=== PATIENT | female | born 1995 | race Caucasian/White ===

== ENCOUNTER 2021-08-28 11:12 | Emergency (ER) | payer OTHER, SELFPAY ==
[2021-08-28 12:25] VITALS: BP 149/83; PULSE 93; RESP 20; TEMP 37.1; O2SAT 99
--- NOTE | 2021-08-28 13:10 | ED.URI ---
HPI - URI/Sore Throat General Chief Complaint: Upper Respiratory Infection Stated Complaint: Sore Throat/Cough/Congestion Source: patient and RN notes reviewed Mode of arrival: ambulatory History of Present Illness HPI Narrative: 25-year-old female presented for complaint of sore throat, head congestion, sneezing, cough with white sputum, and pleuritic chest pain for 6 days. She also endorses occasional headache and low-grade fever today. She denies shortness of breath, nausea, vomiting, diarrhea. She has been taking DayQuil, throat spray, and [place] for symptoms. She has been vaccinated for Covid and had a PCR test 2 days ago pending results. Related Data Home Medications Medication Instructions Recorded Confirmed norgestimate-ethinyl estradiol 1 tablet PO DAILY 08/28/21 08/28/21 [[id number]] topiramate 25 mg PO BID PRN 08/28/21 08/28/21 Allergies Allergy/AdvReac Type Severity Reaction Status Date / Time No Known Allergies Allergy Unverified 08/28/21 13:14 Review of Systems Review of Systems: All systems reviewed & are unremarkable except as noted in HPI and below [facility] Family History Family History (Updated 08/28/21 @ 13:15 by Yee Chopra, [employer]) Other Family history non-contributory Exam Narrative: GENERAL: Ill-appearing, and in no acute distress. HEAD: Normocephalic, atraumatic. EYES: EOMI. No redness or drainage. Conjunctivae normal. ENT: Mucous membranes pink and moist. Nares clear. No rhinorrhea. NECK: Normal AROM. Supple. No lymphadenopathy. CHEST: No respiratory distress. Clear to auscultation. HEART: Regular rate and rhythm. No murmur appreciated. Normal peripheral pulses. ABDOMEN: Soft, nontender, nondistended, MUSCULOSKELETAL: No bony tenderness. EXTREMITIES: Normal range of motion. No edema. SKIN: Warm, dry, no rash. Capillary refill normal. Normal skin turgor. NEURO: No focal deficits. Alert and oriented x3. Gait steady. PSYCH: Normal affect. No signs of depression or anxiety. Course Course Level of Care: Express Care Visit Vital Signs Vital signs: Vital Signs Temperature 98.8 F 08/28/21 12:25 Pulse Rate 93 08/28/21 12:25 Respiratory Rate 20 08/28/21 12:25 Blood Pressure 149/83 H 08/28/21 12:25 Pulse Oximetry 99 08/28/21 12:25 Temperature 98.8 F 08/28/21 12:25 Pulse Rate 93 08/28/21 12:25 Respiratory Rate 20 08/28/21 12:25 Blood Pressure 149/83 H 08/28/21 12:25 Pulse Oximetry 99 08/28/21 12:25 MDM - URI/Sore Throat MDM Narrative Medical decision making narrative: Pt has covid test pending from [facility] Strep positive flu swab neg DC home with abx and instruction on supportive care and otc medications. Differential Diagnosis Differential diagnosis: Likely upper respiratory infection, sinusitis and viral infection Lab Data Attestation: I reviewed the patient's lab results. Discharge Plan Discharge Clinical Impression: Strep pharyngitis Patient Disposition: Home, Self-Care Condition: Stable Instructions: Antibiotic Form, Strep Throat (ED), Viral Syndrome (ED), COVID-19 (Coronavirus Disease 2019) (ED) Additional Instructions: Strep swab positive today take antibiotic as directed Rest. Stay hydrated. Gargle with warm salt water 2 times a day. Tylenol 1000mg every 8 hours and [id number] medications as you have been. Follow-up with your primary care provider in 1 to 2 weeks as needed. You are waiting for the covid results The following recommendations have been made by the CDC and local Health Departments, regarding COVID-19: Those individuals with mild cases of COVID-19 can generally be discontinued from isolation, 5 days AFTER the onset of symptoms AND the resolution of fever for 24hrs (without the use of fever-reducing medications) Those individuals who were asymptomatic, and tested positive, are discontinued from isolation 5 days AFTER their first positive COVID-19 test Prescriptions:
== END 2021-08-28 13:50 | disposition home or self-care (01) ==
PROVIDERS: Emergency Provider Nurse Practitioner Family; PCP Nurse Practitioner Family
DX: J02.0 Streptococcal pharyngitis (principal)
CPT/HCPCS: 87804; 87880; 99213; G0463

== ENCOUNTER 2021-09-06 08:06 | Emergency (ER) | payer OTHER, SELFPAY ==
[2021-09-06 08:18] VITALS: BP 145/92; PULSE 83; RESP 18; TEMP 36.8; O2SAT 98
--- NOTE | 2021-09-06 08:25 | ED.GENADULT ---
HPI - General Adult General Chief complaint: Ear Stated complaint: meds did not work/sore throat Time Seen by Provider: 09/06/21 08:25 Source: patient Mode of arrival: ambulatory Limitations: no limitations History of Present Illness HPI narrative: 25-year-old female patient presents to the [facility] with complaints of right ear pain. Patient was diagnosed with strep throat and COVID-19 on August 29. Patient states that she was given amoxicillin for her strep infection which she did complete but continues to have a sore throat and now having right ear pain. Denies any fevers, body aches or chills. Related Data Home Medications Medication Instructions Recorded Confirmed norgestimate-ethinyl estradiol 1 tablet PO DAILY 08/28/21 09/06/21 [[id number]] topiramate 25 mg PO BID PRN 08/28/21 09/06/21 Allergies Allergy/AdvReac Type Severity Reaction Status Date / Time No Known Allergies Allergy Verified 09/06/21 08:21 Review of Systems Review of Systems: CONSTITUTIONAL: Denies fever, chills, or sweats. EYES: Denies visual changes, redness, or discharge. ENT: Denies rhinorrhea, congestion, positive sore throat, positive right otalgia. CARDIOVASCULAR: Denies chest pain, palpitations, or edema. RESPIRATORY: Denies cough or dyspnea. GASTROINTESTINAL: Denies abdominal pain, nausea, vomiting, or diarrhea. GENITOURINARY: Denies dysuria or hematuria. SKIN: Denies rash or itching. MUSCULOSKELETAL: Denies back pain, joint pain, or myalgia. NEUROLOGIC: Denies headache, numbness, or weakness. PSYCHIATRIC: Denies anxiety or depression. [facility] Past Medical History Medical History (Updated 09/06/21 @ 08:34 by IDANIA Villanueva) Knee cap dislocation Family History Family History Other Family history non-contributory Comments At the time of my signature I agree with nursing past medical history, surgical, social, and family history. There is no relevant family history pertinent to the presenting complaint. Exam Narrative: GENERAL: Well-appearing, well-nourished, and in no acute distress. HEAD: Normocephalic, atraumatic. EYES: PERRLA and EOMI. ENT: Nares clear, no rhinorrhea or epistaxis. Mucous membranes moist. Posterior pharynx with no erythema, tonsillar joint, exudates or lesions present. Bilateral TMs are clear with no erythema or foreign bodies to the canal. NECK: Supple. No lymphadenopathy CHEST: Clear to auscultation. No respiratory distress. HEART: Regular rate and rhythm. No murmur heard. Normal peripheral pulses. ABDOMEN: Soft, nontender, nondistended, normal active bowel sounds. EXTREMITIES: Normal range of motion. No edema. SKIN: Warm, dry, no rash. NEURO: No focal deficits. Alert and oriented x3. Course Course Level of Care: Express Care Visit Vital Signs Vital signs: Vital signs reviewed. Medical Decision Making Differential Diagnosis Differential Diagnosis: Differential diagnosis: Otitis media, otitis externa, perforated TM, infection of the outer ear, foreign body or cerumen impaction, ruptured TM, acute mastoiditis, ligament otitis externa, dehydration, pneumonia, sepsis, dental or intraoral infection, TMJ dysfunction viral pharyngitis, pharyngitis, group A strep, infectious mononucleosis, gonococcal pharyngitis, exudative pharyngitis, oral candidiasis. Chronic allergies, postnasal drip, GERD, abscess formation, but glottitis, retropharyngeal abscess formation, or airway obstruction. Discussed with patient that given the fact that she continues to have a sore throat this could be radiating to her ear causing her ear to throat hurt but there is no evidence evidence of infection to the ear at this time. Discussed with patient that since she did complete amoxicillin but continues to have a sore throat issues we will try some azithromycin and see if it clears it up however because she had congruent strep throat and COVID it is hard to tell if this i
== END 2021-09-06 08:38 | disposition home or self-care (01) ==
PROVIDERS: Emergency Provider Nurse Practitioner Family; PCP Nurse Practitioner Family
DX: J02.9 Acute pharyngitis, unspecified (principal)
CPT/HCPCS: 99213; G0463

== ENCOUNTER 2021-09-29 12:35 | Emergency (ER) | payer BC, SELFPAY ==
[2021-09-29 12:40] VITALS: BP 123/73; PULSE 75; RESP 14; TEMP 36.9; O2SAT 100
--- NOTE | 2021-09-29 12:53 | ED.URI ---
HPI - URI/Sore Throat General Chief Complaint: Upper Respiratory Infection Stated Complaint: Sore Throat Time Seen by Provider: 09/29/21 12:53 Source: patient and family History of Present Illness HPI Narrative: Patient presents with a sore throat that started 3 nights ago. Patient had strep pharyngitis last month patient states it feels the same way as she did at that time. No trouble swallowing and no drooling. Patient states she is using honey and warm salt water gargles with minimal relief in her throat pain. MD elicited complaint: sore throat Related Data Allergies Allergy/AdvReac Type Severity Reaction Status Date / Time No Known Allergies Allergy Verified 09/29/21 12:54 Review of Systems Review of Systems: CONSTITUTIONAL: Denies fever, chills, or sweats. EYES: Denies visual changes, redness, or discharge. ENT: Denies rhinorrhea, congestion, sore throat, or otalgia. CARDIOVASCULAR: Denies chest pain, palpitations, or edema. RESPIRATORY: Denies cough or dyspnea. GASTROINTESTINAL: Denies abdominal pain, nausea, vomiting, or diarrhea. GENITOURINARY: Denies dysuria or hematuria. SKIN: Denies rash or itching. MUSCULOSKELETAL: Denies back pain, joint pain, or myalgia. NEUROLOGIC: Denies headache, numbness, or weakness. PSYCHIATRIC: Denies anxiety or depression. [facility] Past Medical History Medical History (Updated 09/29/21 @ 13:03 by IDANIA Mauricio) Knee cap dislocation Family History Family History Other Family history non-contributory Comments At time of signature, agree with nursing past medical, surgical, social and family history. There is no relevant family history pertinent to the presenting complaint Exam Narrative: GENERAL: Well-appearing, well-nourished, and in no acute distress. HEAD: Normocephalic, atraumatic. EYES: PERRLA and EOMI. ENT: Nares clear, no rhinorrhea or epistaxis. Mucous membranes moist. Mild pharyngeal erythremia, no trismus can open mouth fully no exudate noted. NECK: Supple. CHEST: Clear to auscultation. No respiratory distress. HEART: Regular rate and rhythm. No murmur heard. Normal peripheral pulses. ABDOMEN: Soft, nontender, nondistended, normal active bowel sounds. EXTREMITIES: Normal range of motion. No edema. SKIN: Warm, dry, no rash. NEURO: No focal deficits. Alert and oriented x3. Sander Coma Scale Eye Opening: Spontaneous 4 Sander Coma Scale Motor: Obeys Commands 6 Sander Coma Scale Verbal: Oriented 5 [place] Coma Scale Total 15 Course Course Level of Care: Express Care Visit Vital Signs Vital signs: Vital Signs Temperature 36.9 C 09/29/21 12:40 Pulse Rate 75 09/29/21 12:40 Respiratory Rate 14 09/29/21 12:40 Blood Pressure 123/73 09/29/21 12:40 Pulse Oximetry 100 09/29/21 12:40 Temperature 36.9 C 09/29/21 12:40 Pulse Rate 75 09/29/21 12:40 Respiratory Rate 14 09/29/21 12:40 Blood Pressure 123/73 09/29/21 12:40 Pulse Oximetry 100 09/29/21 12:40 Discussed with patient that symptoms are more consistent with postnasal drainage. Instructed patient to use Flonase nasal spray 2 sprays each nostril twice a day. Instructed patient to follow-up with primary care provider if no improvement in symptoms. Instructed patient if strep test is positive we will call and place patient on antibiotics at that time. MDM - URI/Sore Throat Differential Diagnosis Differential diagnosis: Likely upper respiratory infection, croup, otitis media, sinusitis, viral infection, bronchitis, influenza and pharyngitis Critical Care Time Critical Care Time Critical Care Time: No Discharge Plan Discharge Clinical Impression: Pharyngitis Patient Disposition: Home, Self-Care Condition: Stable Instructions: Antibiotic Form, Pharyngitis (ED) Additional Instructions: Increase fluids especially juices and water [id number] cough and cold medicine of your choice for your symptom
== END 2021-09-29 13:08 | disposition home or self-care (01) ==
PROVIDERS: Emergency Provider Nurse Practitioner Family; PCP Nurse Practitioner Family
DX: J02.9 Acute pharyngitis, unspecified (principal)
CPT/HCPCS: 87081; 99213; G0463

== ENCOUNTER 2022-07-10 08:41 | Emergency (ER) | payer OTHER, SELFPAY ==
[2022-07-10 08:46] VITALS: BP 135/85; PULSE 91; RESP 14; TEMP 36.3; O2SAT 98
--- NOTE | 2022-07-10 09:46 | ED.URI ---
HPI - URI/Sore Throat General Chief Complaint: Upper Respiratory Infection Stated Complaint: sore throat congestion Time Seen by Provider: 07/10/22 09:38 Source: patient Mode of arrival: ambulatory Limitations: no limitations History of Present Illness HPI Narrative: Patient presents today complaining of a 4 day history of sore throat, postnasal drip leading to cough, congestion. Denies shortness of breath or fever. She currently rates her pain 2/10 and has been taking Sudafed, cough drops, and ibuprofen with mild relief. Denies any sick contacts. Related Data Home Medications Medication Instructions Recorded Confirmed No Home Medications 07/10/22 07/10/22 Allergies Allergy/AdvReac Type Severity Reaction Status Date / Time No Known Allergies Allergy Verified 07/10/22 09:10 Review of Systems Review of Systems: CONSTITUTIONAL: Denies body aches, fever, chills, or sweats. EYES: Denies visual changes, redness, or discharge. ENT: Denies rhinorrhea, or otalgia.+ sore throat, congestion, postnasal drip CARDIOVASCULAR: Denies chest pain, palpitations, or edema. RESPIRATORY: Denies dyspnea.+ cough GASTROINTESTINAL: Denies abdominal pain, nausea, vomiting, or diarrhea. GENITOURINARY: Denies dysuria or hematuria. SKIN: Denies rash, itching, or wounds. MUSCULOSKELETAL: Denies back pain, joint pain, or myalgia. NEUROLOGIC: Denies headache, numbness, tingling, or weakness. PSYCH: Denies depression or anxiety. [facility] Past Medical History Medical History Knee cap dislocation Family History Family History Other Family history non-contributory Comments At time of signature, I have reviewed and agree with nursing past medical, surgical, social and family history unless otherwise noted. Please see nursing chart for further information. There is no relevant family history pertinent to the presenting complaint Exam Narrative: GENERAL: Mildly ill-appearing, well-nourished, and in no acute distress. HEAD: Normocephalic, atraumatic. EYES: EOMI. No redness or drainage. Conjunctivae normal. ENT: Mucous membranes pink and moist. Nares clear. No rhinorrhea. TMs normal bilaterally. Throat mildly erythematous without edema or exudate. Uvula midline. NECK: Normal AROM. Supple. No lymphadenopathy. CHEST: No respiratory distress. Clear to auscultation. HEART: Regular rate and rhythm. No murmur appreciated. Normal peripheral pulses. EXTREMITIES: Normal range of motion. No edema. SKIN: Warm, dry, no rash. Capillary refill normal. Normal skin turgor. NEURO: No focal deficits. Alert and oriented x3. Gait steady. PSYCH: Normal affect. No signs of depression or anxiety. Course Course Level of Care: Express Care Visit Vital Signs Vital signs: Vital Signs Temperature 97.3 F L 07/10/22 08:46 Pulse Rate 91 07/10/22 08:46 Respiratory Rate 14 07/10/22 08:46 Blood Pressure 135/85 07/10/22 08:46 Pulse Oximetry 98 07/10/22 08:46 Oxygen Delivery Room Air 07/10/22 08:46 Temperature 97.3 F L 07/10/22 08:46 Pulse Rate 91 07/10/22 08:46 Respiratory Rate 14 07/10/22 08:46 Blood Pressure 135/85 07/10/22 08:46 Pulse Oximetry 98 07/10/22 08:46 Oxygen Delivery Room Air 07/10/22 08:46 Reviewed. Pt has been instructed to follow up with her PCP regarding her elevated blood pressure today. MDM - URI/Sore Throat Differential Diagnosis Differential diagnosis: Likely upper respiratory infection, sinusitis, viral infection, influenza and other (COVID-19, strep throat) Lab Data Attestation: I reviewed the patient's lab results. Lab results narrative: COVID-19 negative Labs: Influenza A Screen Negative Reference Range: Negative Influenza B Screen Negative R
== END 2022-07-10 09:55 | disposition home or self-care (01) ==
PROVIDERS: Emergency Provider Nurse Practitioner; PCP Nurse Practitioner Family
DX: J06.9 Acute upper respiratory infection, unspecified (principal); Z20.822 Contact with and (suspected) exposure to COVID-19
CPT/HCPCS: 87081; 87426; 87804; 87880; 99213; C9803; G0463

== ENCOUNTER 2022-10-06 08:15 | Emergency (ER) | payer OTHER, SELFPAY ==
[2022-10-06 08:26] VITALS: BP 135/91; PULSE 83; RESP 16; TEMP 36.3; O2SAT 99
--- NOTE | 2022-10-06 08:39 | ED.URI ---
HPI - URI/Sore Throat General Chief Complaint: Upper Respiratory Infection Stated Complaint: Sore Throat Source: patient and RN notes reviewed History of Present Illness HPI Narrative: 26-year-old female presents to urgent care with complaints of sore throat x1 day. Patient is also reporting congestion runny nose. Patient has been around her sister this past weekend who tested positive for strep. Patient denies any fevers, chills, chest pain, shortness of breath, or vomiting. Patient has been taking [id number] cold and flu medications with moderate relief. Some parts of this dictation were generated by voice recognition software and may contain typographical and/or grammatical inaccuracies. Related Data Home Medications Medication Instructions Recorded Confirmed valacyclovir 1 gram tablet mg 10/06/22 Allergies Allergy/AdvReac Type Severity Reaction Status Date / Time No Known Allergies Allergy Verified 07/10/22 09:10 Review of Systems Review of Systems: CONSTITUTIONAL: Denies fever, chills, or sweats. EYES: Denies visual changes, redness, or discharge. ENT: Reports sore throat, runny nose, and congestion CARDIOVASCULAR: Denies chest pain, palpitations, or edema. RESPIRATORY: Denies cough or dyspnea. GASTROINTESTINAL: Denies abdominal pain, nausea, vomiting, or diarrhea. GENITOURINARY: Denies dysuria or hematuria. SKIN: Denies rash or itching. MUSCULOSKELETAL: Denies back pain, joint pain, or myalgia. NEUROLOGIC: Denies headache, numbness, or weakness. [facility] Past Medical History Medical History Knee cap dislocation Family History Family History Other Family history non-contributory Comments At the time of my signature, I reviewed and agree with the nursing past medical, surgical, social, and family history. There is no relevant family history pertinent to the patient complaint. Exam Narrative: GENERAL: This is a well-nourished, well-developed patient, in no apparent distress. HEAD: normocephalic, atraumatic. EYES: PERRL. Sclera clear/white. Vision is grossly intact. EARS: External ears normal, auditory canals clear and without drainage, TMs normal without perforation. Hearing grossly intact. NOSE: External nose normal with no obvious nasal discharge, nares without redness, no rhinorrhea. THROAT: Mucous membranes moist, posterior pharynx clear. NECK: Neck supple, non-tender without lymphadenopathy, masses or thyromegaly. CARDIOVASCULAR: Regular rate and rhythm without murmurs, gallops, or rubs. RESPIRATORY: Clear to auscultation. Breath sounds equal bilaterally. No wheezes, rales, or rhonchi. GASTROINTESTINAL: Abdomen soft, non-tender, nondistended. Bowel sounds are active. No hepato-splenomegaly, or palpable masses. No guarding. SKIN: warm, intact with no suspicious lesions or rash, good texture and turgor. NEURO: awake, alert, and oriented to person, place and time. There were no obvious focal neurologic abnormalities. Course Course Level of Care: Express Care Visit Vital Signs Vital signs: Vital Signs Temperature 97.3 F L 10/06/22 08:26 Pulse Rate 83 10/06/22 08:26 Respiratory Rate 16 10/06/22 08:26 Blood Pressure 135/91 H 10/06/22 08:26 Pulse Oximetry 99 10/06/22 08:26 Oxygen Delivery Room Air 10/06/22 08:26 Temperature 97.3 F L 10/06/22 08:26 Pulse Rate 83 10/06/22 08:26 Respiratory Rate 16 10/06/22 08:26 Blood Pressure 135/91 H 10/06/22 08:26 Pulse Oximetry 99 10/06/22 08:26 Oxygen Delivery Room Air 10/06/22 08:26 Reviewed MDM - URI/Sore Throat MDM Narrative Medical decision making narrative: Rapid strep is negative in the office; however we will send to the lab for confirmation; there is a small percentage chance that it can come back positive; if it is, we will call you in 2-3days; and your prescription will be call
== END 2022-10-06 08:47 | disposition home or self-care (01) ==
PROVIDERS: Emergency Provider Nurse Practitioner Family; PCP Nurse Practitioner Family
DX: J02.9 Acute pharyngitis, unspecified (principal)
CPT/HCPCS: 87081; 87880; 99213; G0463

== ENCOUNTER 2023-09-03 11:23 | Outpatient (CLI) | payer OTHER, SELFPAY ==
--- NOTE | ~2023-09-03 | US_ITS ---
EXAMINATION: US OB transvaginal INDICATION: spotting first trimester TECHNIQUE: Sonography of the pelvis was performed by transabdominal and transvaginal techniques. COMPARISON: None. RESULT: Uterus: 8.0 x 3.8 x 4.6 cm. Anteverted. Homogenous myometrium. Intrauterine gestational sac: Single present. Mean Sac Diameter: Not measured. Yolk sac: 0.4 cm . Embryo: Single present. [place] rump length: 0.27 cm, corresponding gestational age 5 weeks, 6 days. Gestational heart rate: present 111 bpm. Subgestational hematoma: Absent . Right ovary: Not visualized. Left ovary: 2.4 x 2.2 x 2.2 cm. Vascular flow is present. No adnexal mass. Pelvis free fluid: None. IMPRESSION: Single, live intrauterine gestation. Estimated Gestational Age: 5 weeks, 6 days by crown rump length. KELLEY by ultrasound 04/29/2024. Right ovary not visualized. No adnexal abnormality detected. Reviewed, dictated and finalized at location K. DING MAINTENANCE CUSTODIAN IMPRESSION: Single, live intrauterine gestation. Estimated Gestational Age: 5 weeks, 6 days by crown rump length. KELLEY by ultras ound 04/29/2024. Right ovary not visualized. No adnexal abnormality detected.
== END 2023-09-03 11:24 ==
PROVIDERS: PCP Advanced Practice Midwife; Visit Provider Advanced Practice Midwife
DX: R10.2 Pelvic and perineal pain (principal); O26.851 Spotting complicating pregnancy, first trimester; Z3A.01 Less than 8 weeks gestation of pregnancy
CPT/HCPCS: 76817

== ENCOUNTER → 2023-09-17 10:21 | Outpatient (CLI) | payer OTHER, SELFPAY ==
--- NOTE | ~2023-09-17 | US_ITS ---
EXAMINATION: US OB <= 14 weeks fetus DATE: 09/17/2023 INDICATION: Spotting during first trimester TECHNIQUE: Real-time pelvic ultrasound utilizing both a transvaginal and transabdominal probe was pe rformed. The interpreting radiologist was not present for the study. COMPARISON: None. FINDINGS: The uterus measures 8.4 x 4.6 x 5.9 cm. There is an intrauterine gestational sac. A yolk sac and fet al pole are identified. The crown rump length measures 1.5 cm, which correlates with an estimated ges tational age of 7 weeks and 6 days. heart motion is identified measuring 161 beats per minute ( bpm) by M-mode Doppler. No evident subchorionic hematoma. The right ovary is not visualized The left ovary measures 3.4 x 2.3 x 2.5 cm. There is no free fluid in the pelvis. IMPRESSION: 1. Single living fetus with heart rate of 161 bpm. 2. [place]-rump length 1.5 cm which is exactly concordant with previously estimated gestational age by ultrasound of 7 weeks 6 day(s) with ultrasound estimated date of delivery (KELLEY) of 04/29/2024. Reviewed, dictated and finalized at location A. [employer] LEAD WRITER IMPRESSION: 1. Single living fetus with heart rate of 161 bpm. 2. [place]-rump length 1.5 cm which is exactly concordant with previously estimat ed gestational age by ultrasound of 7 weeks 6 day(s) with ultrasound estimated date of delivery (KELLEY) of 04/29/2024.
== END ==
PROVIDERS: PCP Obstetrics & Gynecology Gynecology; Visit Provider Obstetrics & Gynecology Gynecology
DX: O26.851 Spotting complicating pregnancy, first trimester (principal); Z3A.01 Less than 8 weeks gestation of pregnancy
CPT/HCPCS: 76801

== ENCOUNTER 2023-12-02 10:03 | Outpatient (CLI) | payer OTHER, SELFPAY ==
--- NOTE | ~2023-12-02 | US_ITS ---
EXAMINATION: US OB /maternal detail DATE: 12/02/2023 11:14 INDICATION: survey TECHNIQUE: Multiple obstetric sonographic images performed. FINDINGS: Comparison to 09/17/2023 and 09/03/2019 There is a single living fetus in vertex presentation. The placenta is anterior without placenta pre via. Placental margin to the cervix is 4.2 cm. Amniotic fluid volume is subjectively normal. cardiac activity and movement is noted with a heart rate of 162 beats per minute. The following anatomy was identified as normal: 4 chamber heart 3 vessel cord cord insertion kidneys urinary bladder stomach spine diaphragm ventricles cisterna magna cerebellum The following biometric data were obtained: BPD: 45mm corresponds to gestational age 19 weeks 3 days. Head circumference: 164 mm corresponds to gestational age 19 weeks 1 days. Abdominal circumference: 136 mm corresponds to gestational age 19 weeks 0 days. Femur length: 28 mm corresponds to gestational age 18 weeks 4 days. Head circumference to abdominal circumference ratio: 1.21 (normal range for expected gestational age is 1.09-1.26). Estimated weight: 263 grams +/- 40 grams using Hadlock method, 57%. IMPRESSION: 1: Single living intrauterine with an estimated gestational age of 18weeks 5days by initial ultrasound measurements, with an EDC of 04/29/2024 in vertex presentation. 2. Normal survey. Reviewed, dictated and finalized at location A. IMPRESSION: 1: Single living intrauterine with an estimated gestational age of 18 weeks 5days by initial ultrasound measurements, with an EDC of 04/29/2024 in ve rtex presentation. 2. Normal survey.
== END 2023-12-02 10:04 ==
LOC: MICIMG 10:04
PROVIDERS: PCP Obstetrics & Gynecology Gynecology; Visit Provider Advanced Practice Midwife
DX: Z36.9 Encounter for antenatal screening, unspecified (principal); Z3A.18 18 weeks gestation of pregnancy
CPT/HCPCS: 76805

== ENCOUNTER 2024-04-03 10:57 | Outpatient (CLI) | payer OTHER, SELFPAY ==
--- NOTE | ~2024-04-03 | US_ITS ---
EXAMINATION: US OB follow up DATE: 04/03/2024 11:21 INDICATION: Size less than dates. TECHNIQUE: Real-time ultrasound of the pelvis was performed. COMPARISON: Ultrasound 12/02/2023, 09/17/2023, 09/03/2023 FINDINGS: There is a single living fetus in vertex presentation. The placenta is anterior. heart rate is 145 beats per minute (bpm). The amniotic fluid index is 15.2 cm, which is normal. The cervical lengt h is 1.6 cm on transabdominal images, which is short. The following biometric data were obtained: Biparietal diameter (BPD): 9.0 cm; head circumference (HC): 33.0 cm; abdominal circumference (AC): 34 .1 cm; femur length (FL): 7.1 cm. These measurements are concordant. Estimated weight is 3200 g +/- 480 g, which correlates with the 81st percentile when 04/29/24 is used as estimated date of delivery. As single measurements, these parameters are each equal to the following estimated gestational ages: BPD: 36 weeks 3 days. HC: 37 weeks 4 days. AC: 38 weeks 0 days. FL: 36 weeks 3 days. estimated gestational age based solely on measurements from this exam is 37 weeks 1 days +/- 2 weeks 4 days. IMPRESSION: 1. Single living fetus in vertex presentation. 2. Estimated weight is 3200 g +/- 480 g, which correlates with the 81st percentile when 04/29/24 is used as estimated date of delivery. This date was set by ultrasound on 09/03/2023. 3. Short cervix. Reviewed, dictated and finalized at location A.
== END 2024-04-03 10:58 ==
PROVIDERS: PCP Advanced Practice Midwife; Visit Provider Advanced Practice Midwife
DX: O36.5930 Maternal care for other known or suspected poor fetal growth, third trimester, not applicable or unspecified (principal); O26.873 Cervical shortening, third trimester; Z3A.37 37 weeks gestation of pregnancy
CPT/HCPCS: 76816

== ENCOUNTER 2024-04-27 22:09 | Inpatient (IN) | payer OTHER, SELFPAY ==
[2024-04-27 22:45] VITALS: BP 132/79; PULSE 99
[2024-04-27 23:00] VITALS: BP 129/78; PULSE 99; TEMP 36.1
[2024-04-27 23:01] LABS: Basophils Absolute Auto 0.1 K/mm3 (0.0-0.1); Basophils Percent Auto 0.4 % (0.2-1.2); Eosinophils Absolute Auto 0.1 K/mm3 (0-0.3); Eosinophils Percent Auto 0.5 % (0-4.4); Hematocrit 38.3 % (37.0-47.0); Immature Granulocyte Absolute 0.09 K/mm3 (0.00-0.031); Immature Granulocyte Percent A 0.5 % (0-0.5); Lymphocytes Percent Auto 14.4 % (18.3-44.2); Mean Corpuscular HGB Conc 33.9 g/dl (32-36); Mean Corpuscular Volume 88.2 fl (80-100); Mean Platelet Volume 10.6 fl (7.4-10.4); Neutrophils Absolute Auto 13.1 K/mm3 (1.3-6.7); Neutrophils Percent Auto 78.2 % (45.5-73.1); Platelet Count Result 319 k/mm3 (150-375); Red Blood Count 4.34 M/mm3 (4.2-5.4); Red Cell Distribution Width 14.1 % (11.5-14.5); White Blood Count 16.7 K/mm3 (4.5-10.0)
[2024-04-27 23:04] VITALS: BMI 36.7
--- NOTE | 2024-04-27 23:04 | LDADM ---
This patient, Terri Greene, was admitted to Labor/Delivery/Recovery 103 on 04/27/24 at 22:09. Plans for labor, pain management and were discussed with patient. Patient/family oriented to hospital policies and general routines including ID bracelet, bed and alarms, visiting hours, pain management, procedures, bathroom and other care routines, personal items, smoking policy, room service/diet and guest tray routines, security routines, and visiting hours. Patient/Family are encouraged to report perceived risks to care and to ask questions if they do not understand what they are told or what they should do. See OBIX for further documentation.
[2024-04-27 23:25] LABS: Rapid Plasma Reagin Non-Reactive (NonReactive)
[2024-04-27 23:52] LABS: HIV 1/2 Ab P24 Ag Result Negative (Negative)
[2024-04-28] VITALS (85 sets, daily range): BP systolic 85–132; BP diastolic 48–88; PULSE 69–111; RESP 16–18; TEMP 36.4–37; O2SAT 96–100
[2024-04-28] MEDS: LACTATED RINGERS 1,000 ML 125 ML IV CONT ×2 (00:05→04:32)
--- NOTE | 2024-04-28 00:36 | WPDANESEPP ---
Anes - Eval Pre Procedure Procedure: labor epidural Date/Time: 04/28/24 00:36 Surgeon: eileen Preop Diagnosis: pain during labor Pre Op Diagnosis: Leaking fluid Patient Data Age: 28 Gender: F Height: 1.63 m Weight: 97 kg Last Vital Signs Pulse 91 04/28/24 00:01 BP 132/78 04/28/24 00:01 O2 Del Method Room Air 04/27/24 23:20 Allergies Allergy/AdvReac Type Severity Reaction Status Date / Time No Known Allergies Allergy Verified 04/12/24 12:19 Home Medications Medication Instructions Recorded Confirmed Type ergocalciferol (vitamin D2) 1,250 1,250 mcg PO DAILY 04/12/24 04/12/24 History mcg (50,000 unit) capsule (Vitamin D2) ferrous sulfate 325 mg (65 mg 325 mg PO DAILY 04/12/24 04/12/24 History iron) tablet vits no.126-ferrous fum 1 tablet PO DAILY 04/12/24 04/12/24 History 28 mg iron-folic acid 800 mcg tablet (Classic ) valacyclovir 500 mg tablet 500 mg PO BID 04/12/24 04/12/24 History (Valtrex) Laboratory Tests 04/27/24 22:53 WBC 16.7 H K/mm3 (4.5-10.0) RBC 4.34 M/mm3 (4.2-5.4) Hgb 13.0 g/dL (12.0-15.0) Hct 38.3 % (37.0-47.0) MCV 88.2 fl (80-100) MCH 30.0 pg (26-34) MCHC 33.9 g/dl (32-36) RDW 14.1 % (11.5-14.5) Plt Count 319 k/mm3 (150-375) MPV 10.6 H fl (7.4-10.4) Immature Gran % (Auto) 0.5 % (0-0.5) Neut % (Auto) 78.2 H % (45.5-73.1) Lymph % (Auto) 14.4 L % (18.3-44.2) Bradley % (Auto) 6.0 % (2.6-8.5) Eos % (Auto) 0.5 % (0-4.4) Baso % (Auto) 0.4 % (0.2-1.2) Lymph # (Auto) 2.40 K/mm3 (0.9-3.2) Bradley # (Auto) 1.0 H K/mm3 (0.1-0.6) Eos # (Auto) 0.1 K/mm3 (0-0.3) Baso # (Auto) 0.1 K/mm3 (0.0-0.1) Abs Immat Gran (auto) 0.09 H K/mm3 (0.00-0.031) Absolute Neuts (auto) 13.1 H K/mm3 (1.3-6.7) Absolute Nucleated RBC 0.000 K/mm3 (0.0-0.012) Nucleated RBC % 0.0 % (0.0-0.2) RPR Non-reactive (NonReactive) HIV 1&2 Ab/P24 Ag 4thGn Negative (Negative) Blood Type AB Positive Antibody Screen Negative Patient hx anesthesia problems: none Family hx anesthesia problems: none Results Review: All pre-operative results and documents have been reviewed as part of the pre-operative evaluation. [facility] Past Medical History Medical History (Updated 04/28/24 @ 00:36 by Migdalia Verdugo CRNA) IUP (intrauterine ), incidental Knee cap dislocation Family History Family History (Updated 04/12/24 @ 12:27 by Elicia Hall RN) Grandparent Diabetes mellitus Mother Hypertension Other Family history non-contributory Social History Social History Smoking status: Never smoker Substance use: never Do You Feel Safe in your Home?: Yes Lack of Transportation: No Lack of Food: Never True Current Housing: I Have Housing Concerned About Future Housing: No Difficulty Paying Gas/Electric Bills: No Difficulty Paying for Meds: No Currently Unemployed: No Education: Associate Degree Difficulty w/ Childcare or Family Care: No Spiritual care concerns: No Exam Day of Procedure 04/28/24 00:36
[2024-04-28] MEDS: ONDANSETRON INJ 4 MG/2 ML VIAL IV PUSH ×2 (01:34→09:39)
[2024-04-28] MEDS: OXYTOCIN 30 UNITS/NS 500 ML 30 UNITS/500 ML BAG IV CONT (04:00)
--- NOTE | 2024-04-28 08:01 | WPDOBADMIT ---
Obstetrics - Admit Note Admission Note: record reviewed. No pertinent additions to the history and/or any subsequent changes in the physical findings that are not consistent with the expected course of the were found. Additions to the history and/or subsequent changes in the physical findings follow. Admitted overnight for prolonged rupture of membranes. Pt called after hours pager on 04/27/24 reporting leaking greenish yellow fluid throughout the day. Also reports leaking clear, thin, watery fluid with white specks/chunks since sometime on Apr 26.
--- NOTE | 2024-04-28 08:04 | PM.OBPNLAB ---
Pain Control Date/time seen: 04/28/24 0755 Pain control: tolerating well and epidural Pelvic Exam Dilation (cm): 5 (5.5) Effacement (%): 90 station: 0 Amniotic membrane status: Leaking Contractions Monitor mode: Internal Contraction pattern: Irregular Contraction phase: Contraction Contraction intensity: Strong/Firm Status status: Category ll Comments: Reassured by moderate variability. Assessment and Plan Pitocin rate (mU/min): 14 Assessment: induction ongoing Plan: continuous present management Comments: Care assumed from Dr. Rivera at 8am. Discussed plan of care with pt and her S.O. She reports intermittent lower back pain. Recommend frequent repositioning to allow for optimal descent. Anticipate vaginal . Dr. iRvera updated.
[2024-04-28] MEDS: AMPICILLIN 2 GM/NS 100 ML 2 GM/100 ML BAG IVPB (08:10)
[2024-04-28] MEDS: OXYTOCIN 30 UNITS/NS 500 ML 30 UNITS/500 ML BAG 125 UNITS IV CONT (12:00)
--- NOTE | 2024-04-28 12:10 | P.PCNOB_ITS ---
OB - Vaginal Delivery Note Procedure Delivery date: 04/28/24 Intrapartal Events: Other (Prolonged rupture of membranes, meconium stained fluid) Induction method: Per Pitocin Protocol Delivery monitor: External FHT and Internal Uterine Route of delivery: Episiotomy description: None Laceration Description: Perineal - 2nd Degree Delivery repair: vicryl Specimen: Yes Quantitative Blood Loss (ml): 225 Anesthesia type: Epidural Disposition: Floor Complications: Other complications (shoulder dystocia, retained placenta) Narrative: Terri arrived from home after spontaneous rupture membranes. Pitocin was started and her cervix changed to complete dilation. She was giving antibiotics for prolonged rupture of membranes. She pushed very well with contractions. The head delivered easily after which minimal restitution was observed. A tight nuchal cord and shoulder dystocia were identified. There is no descent of the anterior shoulder with Mychal Cheung position or suprapubic position. CNM inserted hand posteriorly. hand immediately identified the posterior ( left ) arm was located and brought forward in a sweeping motion. The posterior shoulder delivered easily followed by the anterior shoulder. The remainder of the was delivered in the somersault maneuver. The nuchal cord was reduced. The was placed on the maternal abdomen dried and stimulated By nursing staff. The cord was immediately clamped and cut at the request of nursery staff. a second-degree perineal laceration was sustained. This was repaired in the usual fashion. After 30 minutes of life, there is no delivery of the placenta. Patient's consent was obtained for manual removal however this a placenta delivered spontaneously. There was excellent uterine tone and hemostasis. All delivery counts correct. Mother and baby skin to skin in the delivery room. [place] Baby Date of : 04/28/24 Time of : 11:29 Gestational Age by Date: 40 gender: Male Weight (pounds): 8 Weight (ounces): 3 presentation: vertex position: Left Occiput Anterior Placenta delivery description: Spontaneous and Normal Configuration (meconium stained. Retained but spontaneous delivery.) score one minute: 8 score five minutes: 10
--- NOTE | 2024-04-28 12:19 | PM.OBDSVD ---
DS: Admitting Diagnosis Discharge Date 04/30/[address] Rivera Admitting Diagnosis 28 y.o. at 40 weeks SROM Meconium stained fluid Prolonged ROM DS: Discharge Diagnosis Discharge Diagnosis (1) (normal spontaneous vaginal delivery): Code(s): O80 - Encounter for full-term uncomplicated delivery Status: Acute (2) Mother currently breast-feeding: Code(s): Z39.1 - Encounter for care and examination of lactating mother Status: Acute OB - DS: Summary Hospital Course Hospital Course: Uncomplicated OB Procedures : Ultrasound OB Procedures Intrapartum: Spontaneous Vag Delivery, Retained placenta and Other (Shoulder dystocia) OB Procedures: : None Peripartum Data Infant Delivery Method: Natural Vaginal Laceration Description: Perineal - 2nd Degree Episiotomy description: None complications: none Time Spent with Patient Time attestation: Total time spent providing and/or coordinating discharge services: DS: Data Data Completed and Pending Pending studies at discharge: Pending at discharge 04/28/24 12:10 Surgical [PTH] Routine Labs on day of discharge: Labs from last 24 hours 04/27/24 22:53 WBC 16.7 H RBC 4.34 Hgb 13.0 Hct 38.3 MCV 88.2 MCH 30.0 MCHC 33.9 RDW 14.1 Plt Count 319 MPV 10.6 H Immature Gran % (Auto) 0.5 Neut % (Auto) 78.2 H Lymph % (Auto) 14.4 L [place] % (Auto) 6.0 Eos % (Auto) 0.5 Baso % (Auto) 0.4 Lymph # (Auto) 2.40 [place] # (Auto) 1.0 H Eos # (Auto) 0.1 Baso # (Auto) 0.1 Abs Immat Gran (auto) 0.09 H Absolute Neuts (auto) 13.1 H Absolute Nucleated RBC 0.000 Nucleated RBC % 0.0 RPR Non-reactive HIV 1&2 Ab/P24 Ag 4thGn Negative Blood Type AB Positive Antibody Screen Negative Discharge Plan Discharge Attending physician on discharge: Angle Lee Discharging Clinician: Michele Rivera Patient Disposition: Home, Self-Care Activity: pelvic rest Diet: regular Wound Care Instructions: follow printed instructions Discharge Instructions: Continue taking your vitamin and any other supplements as previously directed (Examples: Iron, Vitamin D). You may take Tylenol 1000mg over the counter every 6 hours as needed for pain. Do not exceed 4000mg of Tylenol daily. You may continue using tucks pads and dermoplast spray if needed for a few more days. Depression Notify provider for signs or symptoms. These may include- Feelings: Feeling anxious, angry, hopeless, guilt, or loss of interest/pleasure in activities you normally enjoy. Mood swings or panic attacks. General: Extreme fatigue, loss of your appetite, feeling restless. Crying excessively, irritability, insomnia Psychological: Lack of concentration, depression or fear, unwanted thoughts Weight: Significant gain or loss Safety: Thoughts of harming yourself or your baby. Education: Mom and Baby Guide Given to: Follow-Up: Call your delivering provider's office for an appointment to be seen in: Mom and baby should come to the [facility] for the follow-up appointment. Appointment Date/Time: at What to expect at your follow-up visit: Call [phone] if you are unable to keep your appointment time. BREAST CARE: * Wear a snug supportive bra. * For engorgement discomfort: Breast Feeding: * Apply warm moist washcloths * Express milk as needed to relieve engorgement * Wear loose clothing Bottle Feeding: * May apply ice packs * For sore nipples: * Identify correct latch-on * Apply warm moist washcloths before and after nursing * Air dry nipples after nursing * May apply Lansinoh cream to nipples EPISIOTOMY/PERINEAL CARE: * Until bleeding stops, use your john bottle after urinating * Change your pad frequently throughout
[2024-04-28] MEDS: WITCH HAZEL 40 PADS 1 PAD TOPICAL (14:20)
[2024-04-28] MEDS: BENZOCAINE 20% AER SPR (*SP) 56 GM CAN 1 SPRAY TOPICAL (14:20)
[2024-04-28] MEDS: IBUPROFEN 600 MG TABLET PO ×2 (14:36→23:50)
[2024-04-28] MEDS: ACETAMINOPHEN 325 MG TABLET 650 MG PO ×2 (14:37→23:50)
--- NOTE | 2024-04-28 14:45 | OBPPTRN ---
Patient transferred to post room # 279 via wheelchair. Support person present. Oriented to unit, room, information board, rooming in, admission packet and security measures. Patient verbalizes understanding.
--- NOTE | 2024-04-28 15:54 | PC.NURSE ---
1500. Introductions were made, then consulted with patient to assess needs related to . Mother led the conversation with her?plans to feed?her infant and the?experience so far. Encouraged understanding of the benefits of skin to skin (demonstrating unwrapping infant and placing upright on her chest), stimulating with massage touch, changing positions to encourage wakefulness, how to watch for early feeding cues, responsive feeding, feeding on demand (aiming for 8-12 times in 24 hours, about every 2-3 hours), milk production, building/maintaining a milk supply, duration of feeding, signs of adequate intake/output and how to record on the feeding sheet. Mother works well with her with encouragement and education. Reviewed positioning and ear, shoulder, hip alignment, supporting the breast to facilitate a deep latch, asymmetrical latch (off-center), leading with the chin with a big, open, wide gape and body close to mother. latched optimally to the left breast in football position. Education given to the mother of how to visualize the suckling (with good rocking jaw motion), swallows (dropping of the lower jaw) and how to listen for drinking at the breast (the ka sound). Infant was able to maintain latch without pain to mother protecting the nipple with optimal positioning and latching. Reviewed comfort measures of healing with a warm, wet washcloth to rinse breast, then leave open to air-dry, good handwashing when or touching the breast/nipples to prevent infection. Mother voiced understanding of skin to skin, stimulating with massage touch, responsive feedings, hand expressed colostrum, talking to infant to encourage if it has been 2 -2.5 hours since the start of the last , to call if does not latch, or if there is discomfort with . Resources used for education were facilitated with the visual educational handouts/ tool & mom and baby guide. Parents voiced understanding of information, demonstrated learning and will call if there is a request for assistance. Reported to the Primary RN.
[2024-04-29 03:52] LABS: Hematocrit 34.7 % (37.0-47.0); Hemoglobin 11.8 g/dL (12.0-15.0)
[2024-04-29 04:00] VITALS: BP 107/67; PULSE 66; RESP 16; TEMP 36.8
--- NOTE | 2024-04-29 06:03 | PM.OBPNVD ---
OB - PN: Subj Subjective Date/time seen: 04/29/24 06:03 Narrative: Pain OK. Would like circumcision for son. Would like to go home. OB - PN: Obj Data Labs 04/29/24 03:25 Labs: Laboratory Results - last 24 hr 04/29/24 03:25 Hgb 11.8 L Hct 34.7 L OB - PN A/P Plan Comments: A: PPD#1, doing well. P: Reviewed circ. Home to f/u 6 weeks. Exam Psych: Other: AVSS ABD soft, nontender, fundus firm EXT nontender
--- NOTE | 2024-04-29 08:09 | WPDANLDPN2 ---
Anes-Prog Note L&D Date/Time: 04/29/24 08:09 Comfortable throughout: labor and delivery Neuraxial method: epidural Epidural/Spinal procedure site: clean & non-tender Neuro status: Neuro function grossly intact. Cardiovascular status: normal Respiratory status: normal Airway patency: baseline Mental status: baseline Post-Op hydration status: normal Vital Signs: Last Vital Signs Temp 36.8 C 04/29/24 04:00 Pulse 66 04/29/24 04:00 Resp 16 04/29/24 04:00 BP 107/67 04/29/24 04:00 Pulse Ox 98 04/28/24 14:55 O2 Del Method Room Air 04/28/24 20:00 Pain score (VAS): 3 Post-procedural complaints: none Patient feedback: Patient satisfied with anesthetic care.
[2024-04-29 08:15] VITALS: BP 118/79; PULSE 83; RESP 18; TEMP 36.6; O2SAT 100
[2024-04-29] MEDS: MULTIVIT/MIN/PREN/FOL AC/IRON TABLET 1 TAB PO (08:22)
[2024-04-29] MEDS: FERROUS SULFATE 325 MG TABLET DR PO (08:22)
[2024-04-29] MEDS: DOCUSATE SODIUM 100 MG CAPSULE PO (08:22)
[2024-04-29] MEDS: IBUPROFEN 600 MG TABLET PO ×2 (08:23→19:56)
--- NOTE | 2024-04-29 12:00 | PC.NURSE ---
Consulted with patient to determine needs. Mother is pumping and not putting to breast any longer per her choice. We discussed frequent breast stimulation and mom is on a regular pumping schedule. She has the mom/baby guide for reference on storage of breastmilk. We reviewed use of milk by placing drops on a clean finger and placing them in baby's mouth, or mixing small volumes with some formula and feeding that mixture first. Mom and dad asked appropriate questions and are comfortable moving forward with this feeding plan. Patient will call for further assistance as needed. Reported to Primary RN.
[2024-04-29 20:00] VITALS: BP 119/74; PULSE 89; RESP 18; TEMP 36.7
--- NOTE | 2024-04-30 05:21 | PM.OBPNVD ---
OB - PN: Subj Subjective Date/time seen: 04/30/24 05:21 Narrative: Pain OK. Would like to go home. OB - PN: Obj Data Labs 04/29/24 03:25 OB - PN A/P Plan Comments: A: PPD#2, doing well. P: Home to f/u 6 weeks. Exam Psych: Other: AVSS ABD soft, nontender, fundus firm EXT nontender
[2024-04-30] MEDS: MULTIVIT/MIN/PREN/FOL AC/IRON TABLET 1 TAB PO (07:23)
[2024-04-30] MEDS: DOCUSATE SODIUM 100 MG CAPSULE PO (07:24)
[2024-04-30 08:00] VITALS: BP 129/77; PULSE 79; RESP 18; TEMP 36.6; O2SAT 99
[2024-04-30] MEDS: FERROUS SULFATE 325 MG TABLET DR PO (09:04)
[2024-05-01 11:34] VITALS: BP 120/72; PULSE 69; RESP 18; TEMP 36.8; O2SAT 100
== END 2024-04-30 13:47 | disposition home or self-care (01) | DRG 807 ==
LOC: ANHLDR 04-28 12:21 → ANHOB2 04-28 15:07
PROVIDERS: Advanced Practice Midwife; Admitting Provider Obstetrics & Gynecology; PCP Physician Assistant; Visit Provider Obstetrics & Gynecology
DX: O66.0 Obstructed labor due to shoulder dystocia (principal); Z37.0 Single live birth; O70.1 Second degree perineal laceration during delivery; O73.0 Retained placenta without hemorrhage; O69.1XX0 Labor and delivery complicated by cord around neck, with compression, not applicable or unspecified; O77.0 Labor and delivery complicated by meconium in amniotic fluid; Z3A.40 40 weeks gestation of pregnancy
CPT/HCPCS: 36415; 85014; 85018; 85025; 86592; 86703; 86850; 86900; 86901; 88307; A9270; G0432; J0290; J2405; J2590; J2795; J7120